=== PATIENT | female | born 1970 | race African-American/Black ===

== ENCOUNTER 2017-12-15 14:55 | Emergency (ER) | payer OTHER ==
[2017-12-15] MEDS ORDERED: TETRACAINE 0.5% OU ONE (19:32)
[2017-12-15] MEDS ORDERED: BSS OU ONE (19:32)
[2017-12-15] MEDS ORDERED: FUL-GLO OP ONE (19:32)
[2017-12-16] MEDS ORDERED: PERCOCET 5/325 ONE (00:04)
--- NOTE | 2017-12-16 00:06 | Emergency Department Report ---
ED Eye Problem HPI - General Chief complaint: Eye Problems Stated complaint: RIGHT EYE INJURY Time Seen by Provider: 12/15/17 22:52 Source: patient, family Mode of arrival: Ambulatory Limitations: No Limitations - History of Present Illness Initial comments: Patient here with her and her report patient was worked today and was moving a box off a high shelf and it hit her in the right eye. Patient complaint of right eye pain that is 9 out of 10. Pain is sharp and she says she feels like she has something in her eye. Reports eye watery and sensitive to light. Tetanus vaccine is up-to-date. No alleviating factor but pain is exacerbation when exposed to light and would blinking. No medication taken prior to coming to the hospital. This happened around 11 AM this morning. Patient has a history of diabetes. Denies any other injury. Denies loss of vision, denies any nausea or vomiting. Denies any head injury headache. Denies any fall. MD chief complaint: eye pain, eye redness, eye injury, foreign body (foreign body sensation), other (blurred vision and sensitivity to light) -: This morning Onset Description: sudden Location: right eye Place: work If Injury: direct trauma Eye Symptoms: redness, pain, foreign body sensation, blurry vision, photophobia Severity: severe Severity scale (0 -10): 9 If Pain, Quality: sharp Consistency: constant Context: trauma Associated Symptoms: none Treatments Prior to Arrival: none - Related Data Patient Tetanus UTD: Yes Previous Rx's Medication Instructions Recorded Last Taken Type Gentamicin 0.3% Ophth Soln 2 drops OD Q6H 10 Days #1 bottle 12/16/17 Unknown Rx HYDROcodone/APAP 7.5-325 [[place] 1 each PO Q6HR PRN #12 tablet 12/16/17 Unknown Rx 7.5/325] Ibuprofen [Motrin] 600 mg PO Q8H PRN #12 tablet 12/16/17 Unknown Rx Allergies Allergy/AdvReac Type Severity Reaction Status Date / Time No Known Allergies Allergy Verified 12/16/17 00:06 ED Review of Systems ROS: Stated complaint: RIGHT EYE INJURY Other details as noted in HPI Constitutional: denies: chills, fever Eyes: eye pain, other (watery eye and sensitivity to light, positive foreign body sensation). denies: eye discharge, vision change ENT: denies: ear pain, throat pain, congestion Respiratory: denies: cough, shortness of breath, SOB with exertion, wheezing Cardiovascular: denies: chest pain, palpitations, edema, syncope Gastrointestinal: denies: nausea, vomiting Genitourinary: denies: discharge Musculoskeletal: denies: back pain, joint swelling, arthralgia Skin: denies: rash, lesions Neurological: denies: headache, weakness, paresthesias, abnormal gait, vertigo ED Past Medical Hx - Past Medical History Previous Medical History?: Yes Hx Diabetes: Yes - Surgical History Past Surgical History?: No - Family History Family history: diabetes, hypertension - Social History Smoking Status: Never Smoker Substance Use Type: None Other Social History: Patient is and lives with - Medications Home Medications: Home Medications Medication Instructions Recorded Confirmed Last Taken Type Gentamicin 0.3% Ophth Soln 2 drops OD Q6H 10 Days #1 bottle 12/16/17 Unknown Rx HYDROcodone/APAP 7.5-325 [[place] 1 each PO Q6HR PRN #12 tablet 12/16/17 Unknown Rx 7.5/325] Ibuprofen [Motrin] 600 mg PO Q8H PRN #12 tablet 12/16/17 Unknown Rx ED Physical Exam - General Limitations: No Limitations General appearance: alert, in no apparent distress - Head Head exam: Present: atraumatic, normocephalic, normal inspection, other (normal exam) - Eye Eye exam: Present: PERRL, other (right sclera erythema). Absent: normal appearance, scleral icterus, nystagmus, periorbital swelling, periorbital tenderness Pupils: Present: normal accommodation - Expanded Eye Exam Expanded Eyelids: Normal Inspection: Right (bilateral) Pupils: Regular, Round: Bilateral, Reactive: Bilateral Sclera/Conjunctival: Normal Inspection: Left, Injection: Right (watery) Anterior chamber: Normal Inspection: Bilateral Posterior chamber: Normal Inspection: Bilateral Visual acuity (R) = 20/: 100 Visual acuity (L) = 20/: 40 (20/40 both eyes) With correction: No - ENT ENT exam: Present: normal exam, normal orophraynx, mucous membranes moist, TM's normal bilaterally, normal external ear exam, other (no maxillary or frontal sinus tenderness. Nasal mucosa normal without any drainage) - Neck Neck exam: Present: normal inspection, full ROM, other (no C-spine tenderness). Absent: tenderness, meningismus, lymphadenopathy - Respiratory Respiratory exam: Present: normal lung sounds bilaterally. Absent: respiratory distress, chest wall tenderness - Cardiovascular Cardiovascular Exam: Present: regular rate, normal rhythm, normal heart sounds. Absent: systolic murmur, diastolic murmur - GI/Abdominal GI/Abdominal exam: Present: soft, normal bowel sounds. Absent: tenderness - Extremities Exam Extremities exam: Present: normal inspection, full ROM, normal capillary refill , other (no clubbing, cyanosis or edema.The pulses to all extremities). Absent : tenderness, pedal edema, joint swelling, calf tenderness - Back Exam Back exam: Present: normal inspection, full ROM. Absent: tenderness - Neurological Exam Neurological exam: Present: alert, oriented X3, normal gait - Psychiatric Psychiatric exam: Present: normal affect, normal mood - Skin Skin exam: Present: warm, dry, intact, normal color. Absent: rash ED Course Vital Signs 12/15/17 12/16/17 12/16/17 14:59 00:10 00:12 Temperature 98.2 F Pulse Rate 72 68 Respiratory 18 18 18 Rate Blood Pressure 145/88 Blood Pressure 129/80 [Right] O2 Sat by Pulse 100 100 Oximetry - Reevaluation(s) Reevaluation #1: 12/16/17 00:46 Patient given Percocet 5/3-52 tablets by mouth in emergency for right eye pain with relief of pain. Tetanus vaccine is up-to-date - Procedure Description Procedures done: Right eye procedure. Patient with injury to her right eye with foreign body sensation and pain. Tetracaine ophthalmic drops instilled and right eye. 2 drops, fluorescein staining and Wood positive fluoroscopy stain uptake. Right eye was examined under De Souza lamp and noted corneal abrasion. Tetanus vaccine is up-to-date. Right eyes flush with eyewash after procedure. I instilled 2 drops of tetracaine for comfort and patient reports initially burned but then pain diminished. Visual acuity done and please refer to nurse's and documentation for details. Visual acuity is diminished to right eye due to injury. ED Medical Decision Making - Medical Decision Making ED course Diagnosis 1: Corneal abrasion right eye- Procedure De Souza lamp testing. see procedure notes for details. TD UTD -will discharge with gentamicin ophthalmic and pain meds. 2: Right eye Pain-Pain relieved with tetracaine Ophthalmic and percocet 5/325 mg 2 tablets po in ed Educated on diagnosis, medication and follow-up. Instructed to practice good hand hygiene and to read discharge instruction and Corneal Abrasion. Educated on photophobia prevention in wearing dark glasses which pat already was wearing Instructed if worsening symptoms return to ED Visual Acuity stable , Decrease in RT eye refer to Nurses notes. Better after pain meds. VSS, afeb upon discharge Pt and her voiced understanding of discharge instructions and understands that need to follow up with eye Doctor Referral to PCP and Manager [place] Patient discharged home with in stable condition with prescription for gentamicin ophthalmic drops, [place] and Motrin. She is in stable condition - Differential Diagnosis FB eye, Iritis , Corneal abrasion, conjunctivitis Critical care attestation.: If time is entered above; I have spent that time in minutes in the direct care of this critically ill patient, excluding procedure time. ED Disposition Clinical Impression: Pain, eye, right Injury of conjunctiva and corneal abrasion of right eye w/o FB Qualifiers: Encounter type: initial encounter Qualified Code(s): S05.01XA - Injury of conjunctiva and corneal abrasion without foreign body, right eye, initial encounter Disposition: DC- TO HOME OR SELFCARE Is pt being admited?: No Does the pt Need Aspirin: No Condition: Stable Instructions: Corneal Abrasion (ED), Eye Pain (ED) Additional Instructions: Follow-up with Dr. [facility] for follow-up corneal abrasion Diffuse symptoms worsen, please return to the emergency room otherwise use antibiotic eyedrops as instructed [place] for pain but please do not drive or operate heavy machinery while taking this medication. Motrin for mild to moderate pain Prescriptions: Gentamicin 0.3% Ophth Soln 2 drops OD Q6H 10 Days #1 bottle HYDROcodone/APAP 7.5-325 [[place] 7.5/325] 1 each PO Q6HR PRN #12 tablet PRN Reason: severe pain Ibuprofen [Motrin] 600 mg PO Q8H PRN #12 tablet PRN Reason: mild to moderate pain Referrals: PRIMARY MD DAVID [Primary Care Provider] - 12/18/17 BERENICE SOLIS MD [Staff Physician] - 12/18/17 Forms: Work/School Release Form(ED)
[2017-12-16] MEDS ORDERED: PERCOCET 5/325 PO ONE (00:07)
[2017-12-16 00:13] VITALS: BP 129/80
== END 2017-12-16 00:55 | disposition home or self-care (01) ==
LOC: ED 14:55
DX: S05.01XA Injury of conjunctiva and corneal abrasion without foreign body, right eye, initial encounter (principal); E11.9 Type 2 diabetes mellitus without complications; X58.XXXA Exposure to other specified factors, initial encounter; Y93.89 Activity, other specified; Y92.89 Other specified places as the place of occurrence of the external cause; Y99.8 Other external cause status
CPT/HCPCS: 99282